=== PATIENT | female | born 1980 | race Asian ===

== ENCOUNTER 2016-07-02 10:46 | Inpatient (IN) | payer SELFPAY ==
[~2016-07-02] VITALS: Ht 163 cm; Wt 65.0 kg
[2016-07-05] MEDS ORDERED: OXYTOCIN 10 UNITS/ML VIAL ONE (23:54)
[2016-07-06] MEDS ORDERED: LIDOCAINE 1% 50 ML ONE (00:19)
[2016-07-06] MEDS ORDERED: OXYTOCIN 10 UNITS/ML VIAL ONE (00:20)
[2016-07-06 00:22] VITALS: BP 134/79
[2016-07-06] MEDS ORDERED: MEASLES, MUMPS, AND RUBELLA 1 VIAL SQVAC PRN (00:30)
[2016-07-06] MEDS ORDERED: BENZOCAINE/MENTHOL 20%-0.5% 60 GM CAN TP PRN (00:30)
[2016-07-06] MEDS ORDERED: HYDROcodone/APAP 5/325 MG 1 TAB TAB PO PRN (00:30)
[2016-07-06] MEDS ORDERED: oxyCODONE/APAP 5/325 MG 1 TAB TAB PO PRN (00:30)
[2016-07-06] MEDS ORDERED: WITCH HAZEL 40 PAD PACKAGE TP PRN (00:30)
[2016-07-06] MEDS ORDERED: TEMAZEPAM 15 MG CAP PO PRN (00:30)
[2016-07-06] MEDS ORDERED: METHYLERGONOVINE 0.2 MG/ML AMP IM PRN (00:30)
[2016-07-06] MEDS ORDERED: IBUPROFEN 800 MG TAB PO PRN (00:30)
[2016-07-06] MEDS ORDERED: OXYTOCIN 10 UNITS/ML VIAL IM PRN (00:30)
[2016-07-06] MEDS ORDERED: OXYTOCIN 10 UNITS/ML VIAL IM SCH ×2 (00:50→00:55)
[2016-07-06] MEDS ORDERED: LIDOCAINE 1% 500 MG/50 ML VIAL INJ SCH (00:55)
[2016-07-06] MEDS ORDERED: NATURAL IRON65 MG PO (03:06)
[2016-07-06] MEDS ORDERED: INFLUENZA VIRUS VACCINE QUAD 0.5 ML SYR IMVAC SCH (06:55)
--- NOTE | 2016-07-06 10:05 | NUR ---
PATIENT HAS BEEN SCREENED AND CATEGORIZED LOW NUTRITION RISK. PATIENT WILL BE SEEN WITHIN 7 DAYS OF ADMISSION. 07/12/[address]
[2016-07-06] MEDS ORDERED: DOCUSATE SOD/SENNA 50/8.6 MG 1 TAB PO SCH (21:00)
== END 2016-07-07 21:14 | disposition home or self-care (01) | DRG 775 ==
LOC: MLD 07-05 23:40 → MFCC 07-06 03:40
PROVIDERS: ADMIT Obstetrics & Gynecology; ATTEND Obstetrics & Gynecology
PROC: 10E0XZZ Delivery of Products of Conception, External Approach (ICD-10-PCS; principal; 2016-07-05)
PROC: 0HQ9XZZ Repair Perineum Skin, External Approach (ICD-10-PCS; 2016-07-05)
DX: O62.3 Precipitate labor (principal); O70.0 First degree perineal laceration during delivery; Z3A.40 40 weeks gestation of pregnancy; Z37.0 Single live birth